=== PATIENT | female | born 1950 | race Caucasian/White ===

== ENCOUNTER → 2017-07-08 | Outpatient (CLI) | payer OTHER ==
[~2017-07-08] MED LIST: AMT50 PO; ANAS1TAB19 PO; ASPI81TA28 PO; ATOR-24 PO; FENO160T PO; FMR25 PO; FURO-85 PO; GABA-113 PO; INSDGI SC; LISI10TA PO; METF1TAB53 PO; METO25TA3 PO; MULT-506 PO; NVLGI7030 SC; ONDA8TAB6 PO; PRLSR20 PO; PROC1TAB5 PO; RANI150T3 PO; SERT-234 PO; TRAM-10 PO; WARF3TAB PO; WARF6TAB PO
[2017-07-08 15:00] VITALS: BP 115/65; PULSE 88; TEMP 36.8; O2SAT 95
--- NOTE | 2017-07-08 16:24 | Radiation Oncology Follow-Up ---
Radiation Oncology Follow-Up Date of Visit Jul 08, 2017. Reason For Visit One-month follow-up and cancer survivorship care plan Radiation Completion Date 06/02/17 Diagnosis (1) Breast cancer Status: Acute Onset Date: 09/29/2016 Stage: l (A) Permanent Comment: Abnormal right breast mammogram 08/24/2016 Status post ultrasound-guided biopsy 09/29/2016 revealing infiltrating carcinoma , grade 2 Estrogen receptor positive, progesterone receptor positive, HER-2/mariah negative Status post lumpectomy and sentinel lymph node biopsy 11/12/2016 Invasive ductal carcinoma Stage pT1c pN0 positive margin for DCIS Status post reexcision 12/09/2016, benign Prosigna score of 67 Oncotype DX score of 23 Status post completion of systemic chemotherapy 03/25/2017. She received Taxotere and Cytoxan for 4 cycles. Status post completion of radiation therapy 06/02/2017. She received 5130 cGy utilizing hypo-fractionation. Last Edited By: Kourtney Lemus on Jun 07, 2017 14:18 History of Present Illness Ms. Raza is a 67-year-old female with a family history of breast cancer. The patient's mother was diagnosed with breast cancer. She refused treatment and ultimately from her disease in her 60s. The patient's sister was also diagnosed with breast cancer and has been treated and is doing well. The patient has been followed with screening mammograms. On 08/24/2016 the patient underwent bilateral screening mammograms. In the right breast a new mass was noted directly behind the nipple at the middle depth measuring 1.5 x 1.2 x 1.5 cm. The left breast was unremarkable. Spot compression views were recommended. Therefore on 09/11/2016 patient underwent unilateral diagnostic mammogram and targeted ultrasound. This confirmed a 1.4 cm irregular mass with indistinct margins present in the subareolar region at middle depth. Ultrasound was performed however the area of interest was not easily identified. An area of ill-defined margins was appreciated. This was felt to be highly suspicious and a biopsy was recommended. On 09/29/2016 the patient underwent a sonographic core needle biopsy at the 12: 00 periareolar position. This confirmed the presence of an infiltrating ductal carcinoma NOS grade 2. Accession #: [id number]. Estrogen receptors were strongly positive, progesterone receptors were moderately positive and HER-2/mariah " protein expression was negative. Patient was seen by Dr. Spann for evaluation and discussion of treatment options. The patient agreed to breast conserving therapy and therefore on 11/11/2016 she underwent a right needle localized lumpectomy and sentinel node biopsy. The sentinel node was negative for metastatic disease. The article mastectomy specimen confirmed invasive ductal carcinoma histologic grade 2 with associated ductal intraepithelial neoplasm type II also known as intermediate grade DCIS. The invasive carcinoma was less than 1 mm from the posterior (deep) margin. However the final posterior margin was negative. The anterior margin is positive for GI and-2 ( DCIS grade 2). Accession #: [id number]. Patient went on to have a reexcision of the anterior margin on 12/09/2016. This revealed benign breast tissue with no residual tumor. Accession #: [id number]. Final pathologic stage was therefore a pT1c pN0(sn-), ER positive, SD positive and HER-2/mariah negative. Dr. Spann ordered a PROSIGNA test which came back placing the patient in a high risk category consistent with a 16% recurrence in 10 years. They discussed the possibility of systemic chemotherapy with the patient and she was willing to consider it but wished to avoid it if at all possible. They therefore ordered an Oncotype DX to test. This gave her recurrent score of 23 placing the patient in the intermediate risk category. After much discussion with Dr. Galindo the patient has agreed to proceed with systemic chemotherapy consisting of Taxotere and Cytoxan 4 cycles. The patient is scheduled to see Dr. Spann for placement of a port. We are asked to see her today in referral to discuss the role of adjuvant radiation. She has now completed her chemotherapy. She received Taxotere and Cytoxan for 4 cycles. These were given every 3 weeks. She tolerated treatments well. She has mild paresthesias of the fingertips which are intermittent. She had minimal changes to the nails. She denies any problems with nausea vomiting. She has been no mouth ulcerations. Her weight was stable. She is here today for CT stimulation for treatment planning. She was found to be a candidate for hypo-fractionation. Radiation was completed 06/02/2017. She received 5130 cGy. Interim History She's been doing well over this past month. She denies any changes to her breast. There was some mild dryness of the skin. She's noted no masses or tenderness no change in the axilla. She's had no swelling of her arm. She was seen by Dr. Galindo and is now started Femara. She has very minimal hot flashes. She denies joint pain or tenderness. Allergies Coded Allergies: No Known Allergies (Verified , 08/31/05) Home Medications Scheduled Amitriptyline Hcl (Elavil), 50 MG PO HS Aspirin (Aspirin Ec), 81 MG PO DAILY Atorvastatin (Lipitor), 1 TAB PO DAILY Fenofibrate (Tricor), 160 MG PO DAILY Insulin Aspart 70/30 (Novolog Mix 70/30), 24 UNITS SC BIDM Insulin Glargine (Lantus), 80 UNITS SC QPM Letrozole (Femara), 2.5 MG PO DAILY Lisinopril (Prinivil), 10 MG PO DAILY Metformin Hcl (Glucophage Ext Rel), 1,000 MG PO BID Metoprolol Succ (Toprol Xl) (Toprol-Xl), 25 MG PO BID Multivitamin (Multivitamin), 1 TAB PO DAILY Omeprazole (Prilosec), 20 MG PO DAILY Sertraline (Zoloft), 1 TAB PO DAILY Warfarin Sodium (Coumadin), 1 TAB PO Wed.Wed. Wednesday Warfarin Sodium (Coumadin), 1 TAB PO Sat Sun Scheduled PRN Furosemide (Lasix), 1 TAB PO DAILY PRN for UNDECIDED Gabapentin (Neurontin), 300 MG PO HS PRN for Pain Ondansetron Hcl (Zofran), 8 MG PO Q8 PRN for Nausea Prochlorperazine Maleate (Compazine), 10 MG PO Q6H PRN for Nausea or Vomiting Ranitidine Hcl (Zantac), 150 MG PO DAILY PRN for Heartburn Tramadol (Ultram), 1 TAB PO Q6H PRN for Pain Review of Systems Gastrointestinal: Symptoms: WNL Oral: Symptoms: No Problems Respiratory: Symptoms: SOB At Rest Urinary: Symptoms: WNL Skin: Symptoms: No Problems Breast: Right Upper Arm Measurement: 27.7 Right Mid Arm Measurement: 24.3 Right Wrist Measurement: 16.2 Left Upper Arm Measurement: 26.6 Left Mid Arm Measurement: 23.4 Left Wrist Measurement: 16.2 Arm Dominence: Right Patient Cosmetic Evaluation: Good Staff Cosmetic Evalaluation: Good Physical Exam Vital Signs Date Time Temp Pulse Resp B/P (MAP) Pulse Ox O2 Delivery O2 Flow Rate FiO2 07/08/17 15:00 36.8 88 20 115/65 95 Fatigue: None General Appearance: no apparent distress Eyes: normal inspection, EOMI ENT: normal ENT inspection, hearing grossly normal Neck: no adenopathy, thyroid normal Respiratory/Chest: lungs clear, no respiratory distress, no accessory muscle use Breast: Breast examination reveals well-healed incisions of the right breast. There are no masses or tenderness and no axillary adenopathy. She has no skin retractions or nipple changes. Using the [place] score cosmesis she has a in excellent outcome. The left breast showed no masses or tenderness and no axillary adenopathy. Cardiovascular: regular rate, rhythm, no gallop, no murmur Extremities: no pedal edema Neurologic/Psychiatric: no motor/sensory deficits, alert, normal mood/affect Skin: warm/dry Assessment & Plan Plan: Continue regular follow-up with medical oncology and her primary care physician. She continues on the Femara. She did not have a follow-up appointment with Dr. Spann. An arrangement was made for her to see Dr. Spann. She also wants discussed having her port removed. She wished to have her follow-up mammography in [place]. Orders were written for digital diagnostic mammogram of the right breast in 2 months. She'll then have mammography bilaterally in 8 months. Today we completed a cancer survivorship care plan. A copy of the document was given to the patient. She was also given a survivorship booklet. We asked her to return to our office in 6 months. She may call if she has any questions or concerns in the interim. Total Time In Follow-Up I spent 20 minutes speaking to the patient performing examination. I spent 20 minutes reviewing information, preparing the survivorship document, and completing this note. Copy To Stephie Spann MD; Stephen Galindo MD; Evette Jesus M.D. Problem Qualifiers (1) Breast cancer: Breast location: central portion of breast Estrogen receptor status: positive Patient sex: female Laterality: right Qualified Codes: C50.111 - Malignant neoplasm of central portion of right female breast; Z17.0 - Estrogen receptor positive status [ER+]
== END | disposition home or self-care (01) ==
LOC: C.ONC 14:47
PROVIDERS: ATTEND Physician Assistant Medical
DX: Z08 Encounter for follow-up examination after completed treatment for malignant neoplasm (principal); Z92.3 Personal history of irradiation; Z85.3 Personal history of malignant neoplasm of breast

== ENCOUNTER → 2018-01-27 | Outpatient (CLI) | payer OTHER ==
[~2018-01-27] MED LIST changes: -ANAS1TAB19 PO; +ONDA-170 PO; -ONDA8TAB6 PO
[2018-01-27 12:57] VITALS: BP 140/74; PULSE 92; TEMP 36.7; O2SAT 97
--- NOTE | 2018-01-27 14:22 | Radiation Oncology Follow-Up ---
Radiation Oncology Follow-Up Date of Visit Jan 27, 2018. Reason For Visit Six-month follow-up Radiation Completion Date Hypofractionation 06/02/17 Diagnosis (1) Breast cancer Status: Acute Onset Date: 09/29/2016 Stage: l (A) Permanent Comment: Abnormal right breast mammogram 08/24/2016 Status post ultrasound-guided biopsy 09/29/2016 revealing infiltrating carcinoma , grade 2 Estrogen receptor positive, progesterone receptor positive, HER-2/mariah negative Status post lumpectomy and sentinel lymph node biopsy 11/12/2016 Invasive ductal carcinoma Stage pT1c pN0 positive margin for DCIS Status post reexcision 12/09/2016, benign Prosigna score of 67 Oncotype DX score of 23 Status post completion of systemic chemotherapy 03/25/2017. She received Taxotere and Cytoxan for 4 cycles. Status post completion of radiation therapy 06/02/2017. She received 5130 cGy utilizing hypo-fractionation. Last Edited By: Kourtney Lemus on Jun 07, 2017 14:18 History of Present Illness Ms. Raza has a family history of breast cancer. The patient's mother was diagnosed with breast cancer. She refused treatment and ultimately from her disease in her 60s. The patient's sister was also diagnosed with breast cancer and has been treated and is doing well. The patient has been followed with screening mammograms. On 08/24/2016 the patient underwent bilateral screening mammograms. In the right breast a new mass was noted directly behind the nipple at the middle depth measuring 1.5 x 1.2 x 1.5 cm. The left breast was unremarkable. Spot compression views were recommended. Therefore on 2015 patient underwent unilateral diagnostic mammogram and targeted ultrasound. This confirmed a 1.4 cm irregular mass with indistinct margins present in the subareolar region at middle depth. Ultrasound was performed however the area of interest was not easily identified. An area of ill-defined margins was appreciated. This was felt to be highly suspicious and a biopsy was recommended. On 09/29/2016 the patient underwent a sonographic core needle biopsy at the 12: 00 periareolar position. This confirmed the presence of an infiltrating ductal carcinoma NOS grade 2. Accession #: [id number]. Estrogen receptors were strongly positive, progesterone receptors were moderately positive and HER-2/mariah " protein expression was negative. Patient was seen by Dr. Spann for evaluation and discussion of treatment options. The patient agreed to breast conserving therapy and therefore on 11/11/2016 she underwent a right needle localized lumpectomy and sentinel node biopsy. The sentinel node was negative for metastatic disease. The article mastectomy specimen confirmed invasive ductal carcinoma histologic grade 2 with associated ductal intraepithelial neoplasm type II also known as intermediate grade DCIS. The invasive carcinoma was less than 1 mm from the posterior (deep) margin. However the final posterior margin was negative. The anterior margin is positive for GI and-2 ( DCIS grade 2). Accession #: [id number]. Patient went on to have a reexcision of the anterior margin on 12/09/2016. This revealed benign breast tissue with no residual tumor. Accession #: [id number]. Final pathologic stage was therefore a pT1c pN0(sn-), ER positive, VT positive and HER-2/mariah negative. Dr. Spann ordered a PROSIGNA test which came back placing the patient in a high risk category consistent with a 16% recurrence in 10 years. They discussed the possibility of systemic chemotherapy with the patient and she was willing to consider it but wished to avoid it if at all possible. They therefore ordered an Oncotype DX to test. This gave her recurrent score of 23 placing the patient in the intermediate risk category. After much discussion with Dr. Galindo the patient has agreed to proceed with systemic chemotherapy consisting of Taxotere and Cytoxan 4 cycles. The patient is scheduled to see Dr. Spann for placement of a port. We are asked to see her today in referral to discuss the role of adjuvant radiation. She has now completed her chemotherapy. She received Taxotere and Cytoxan for 4 cycles. These were given every 3 weeks. She tolerated treatments well. She has mild paresthesias of the fingertips which are intermittent. She had minimal changes to the nails. She denies any problems with nausea vomiting. She has been no mouth ulcerations. Her weight was stable. She is here today for CT stimulation for treatment planning. She was found to be a candidate for hypo-fractionation. Radiation was completed 06/02/2017. She received 5130 cGy. Interim History She has been doing well in regards to her rest of the past 6 months. She has occasional discomfort in the lateral aspect of the breast. She is noted no masses and no change of the axilla. She has had no swelling of her arm. She is up-to-date on mammography. She is followed in medical oncology and continues on Femara. She denies side effects. She has had orthopedic issues. She has discomfort in her left wrist and thumb she did recently seen a physician and have x-rays performed. Allergies Coded Allergies: No Known Allergies (Verified , 08/31/05) Home Medications Scheduled Amitriptyline Hcl (Elavil), 50 MG PO HS Aspirin (Aspirin Ec), 81 MG PO DAILY Atorvastatin (Lipitor), 1 TAB PO DAILY Fenofibrate (Tricor), 160 MG PO DAILY Insulin Aspart 70/30 (Novolog Mix 70/30), 24 UNITS SC BIDM Insulin Glargine (Lantus), 90 UNITS SC QPM Letrozole (Femara), 2.5 MG PO DAILY Lisinopril (Prinivil), 10 MG PO DAILY Metformin Hcl (Glucophage Ext Rel), 500 MG PO BID Metoprolol Succ (Toprol Xl) (Toprol-Xl), 25 MG PO BID Multivitamin (Multivitamin), 1 TAB PO DAILY Omeprazole (Prilosec), 20 MG PO DAILY Sertraline (Zoloft), 1 TAB PO DAILY Warfarin Sodium (Coumadin), 1 TAB PO Wed.Wed. Wednesday Warfarin Sodium (Coumadin), 1 TAB PO Sat Sun Scheduled PRN Furosemide (Lasix), 1 TAB PO DAILY PRN for UNDECIDED Gabapentin (Neurontin), 300 MG PO HS PRN for Pain Ondansetron Hcl (Zofran), 8 MG PO Q8 PRN for Nausea Prochlorperazine Maleate (Compazine), 10 MG PO Q6H PRN for Nausea or Vomiting Ranitidine Hcl (Zantac), 150 MG PO DAILY PRN for Heartburn Tramadol (Ultram), 1 TAB PO Q6H PRN for Pain Review of Systems Gastrointestinal: Symptoms: WNL Oral: Symptoms: No Problems Respiratory: Symptoms: WNL Urinary: Symptoms: WNL Skin: Symptoms: No Problems Breast: Right Upper Arm Measurement: 29.0 Right Mid Arm Measurement: 24.5 Right Wrist Measurement: 16.3 Left Upper Arm Measurement: 27.5 Left Mid Arm Measurement: 24.3 Left Wrist Measurement: 16.5 Arm Dominence: Right Physical Exam Vital Signs Date Time Temp Pulse Resp B/P (MAP) Pulse Ox O2 Delivery O2 Flow Rate FiO2 01/27/18 12:57 36.7 92 12 140/74 97 Fatigue: None General Appearance: no apparent distress Eyes: normal inspection, EOMI ENT: normal ENT inspection, hearing grossly normal Neck: no adenopathy, thyroid normal Respiratory/Chest: lungs clear, no respiratory distress, no accessory muscle use Breast: Breast examination reveals a well-healed incisions of the right breast. There are no masses or tenderness of the breast and no axillary adenopathy. There are mild fibrous changes in the area of the breast incision. Very slight tenderness in the area of the axilla. She has no skin retractions or nipple changes. Using the [place] score cosmesis she has a good outcome. The left breast showed no masses or tenderness and no axillary adenopathy. Cardiovascular: regular rate, rhythm, no gallop, no murmur Extremities: no pedal edema Neurologic/Psychiatric: no motor/sensory deficits, alert, normal mood/affect Skin: warm/dry Pain Management Patient Reports Pain: Yes (States has pain all the time;) Pain Location: Wrist Initial Pain Intensity: 5.0 Pain Management Plan She is having orthopedic issues with the left wrist. This has been evaluated by the primary care physician. She has gabapentin and tramadol available for pain relief. Laboratory Laboratory Results: not applicable Pathology Pathology Results: were reviewed, and pertinent findings noted in HPI Imaging Imaging Studies: were reviewed, and pertinent findings noted below Imaging Comments Performed September 07, 2017. Bilateral mammography. The right shows benign findings. Follow-up in 6 months was recommended. The left was negative with no evidence of malignancy. Follow-up in 12 months. This was given a BI-RADS Category 3. Assessment & Plan Plan: Continue with scheduled mammography. She has a mammogram scheduled for February. Continue regular follow-up with medical oncology, her breast surgeon, and her primary care provider. Her mammogram is scheduled for March 10, 2018. And she will see medical oncology May 17, 2018. We asked her to return to our office in 1 year. She may call if she has any questions or concerns in the interim. She will continue follow-up with the primary care physician if she continues to have issues with her left wrist. Total Time In Follow-Up I spent 20 minutes speaking to the patient in performing examination. I spent 15 minutes reviewing information and completing this note. Copy To Stephie Spann MD; Stephen Galindo MD; Evette Jesus M.D. Problem Qualifiers (1) Breast cancer: Breast location: central portion of breast Estrogen receptor status: positive Patient sex: female Laterality: right Qualified Codes: C50.111 - Malignant neoplasm of central portion of right female breast; Z17.0 - Estrogen receptor positive status [ER+]
== END | disposition home or self-care (01) ==
LOC: C.ONC 12:40
PROVIDERS: ATTEND Radiology Radiation Oncology
DX: Z08 Encounter for follow-up examination after completed treatment for malignant neoplasm (principal); Z92.3 Personal history of irradiation; Z85.3 Personal history of malignant neoplasm of breast